=== PATIENT | male | born 1980 ===

== ENCOUNTER 2021-07-27 03:06 | Inpatient (IN) ==
[2021-07-27 03:46] LABS: PCO2 Arterial 36 mmHg (35-45); PO2 Arterial 99 mmHg (80-100)
[2021-07-27 04:27] LABS: ABS Basophils 0.1 10^3/ul (0-0.2); ABS Eosinophils 0.1 10^3/ul (0-0.6); ABS Lymphocytes 2.4 10^3/ul (1.0-4.8); ABS Monocytes 1.3 10^3/ul (0-0.8); ABS Neutrophils 13.7 10^3/ul (1.5-7.7); Eosinophil % 0.8 %; Hematocrit 36 % (42-52); Hemoglobin 11.5 g/dL (14.0-18.0); Lymphocyte % 13.7 %; Mean Corpuscular HGB Conc 32 g/dL (31-36); Mean Corpuscular Hemoglobin 25 pg (27-31); Mean Corpuscular Volume 79 fL (80-94); Mean Platelet Volume 8.4 fL (7.4-10.4); Nucleated Red Blood Cells % 0.1; Platelet Count 310 10^3/uL (150-450); Red Blood Count 4.51 10^6 /uL (4.18-5.48); Red Cell Distribution Width 22 % (10-15); White Blood Count 17.6 10^3/uL (3.5-10.8)
[2021-07-27] MEDS ORDERED: Ondansetron 4 mg VIAL 2 MG/ML 2 ml VIAL IV ONE (04:30)
[2021-07-27] MEDS ORDERED: Lidocaine 1% VIAL 10 MG/ML VIAL ONE (04:32)
[2021-07-27 04:40] LABS: Albumin 3.4 g/dL (3.2-5.2); Albumin/Globulin Ratio 1.6 (1-3); Calcium 8.1 mg/dL (8.6-10.3); Globulin 2.1 g/dL (2-4); Potassium 4.5 mmol/L (3.5-5.0); Total Bilirubin 0.2 mg/dL (0.2-1.0); Total Protein 5.5 g/dL (6.4-8.9); eGFR CKD-EPI 84.3 (>60)
[2021-07-27 08:15] LABS: Hematocrit 35 % (42-52); Hemoglobin 11.2 g/dL (14.0-18.0); Mean Corpuscular HGB Conc 32 g/dL (31-36); Mean Corpuscular Hemoglobin 25 pg (27-31); Mean Corpuscular Volume 78 fL (80-94); Mean Platelet Volume 8.1 fL (7.4-10.4); Platelet Count 302 10^3/uL (150-450); Red Blood Count 4.52 10^6 /uL (4.18-5.48); Red Cell Distribution Width 21 % (10-15); White Blood Count 16.2 10^3/uL (3.5-10.8)
[2021-07-27] MEDS ORDERED: Dextrose 50% Syringe 50 ml 25 GM/50 ML SYRINGE IV PUSH PRN (13:53)
[2021-07-27 13:56] LABS: Urine Appearance Cloudy; Urine Bilirubin Negative (Negative); Urine Blood Negative (Negative); Urine Color Yellow; Urine Glucose Negative (Negative); Urine Ketones Negative (Negative); Urine Nitrite Negative (Negative); Urine Protein Negative (Negative); Urine Specific Gravity 1.027 (1.002-1.030); Urine Urobilinogen Negative (Negative)
[2021-07-27 14:03] LABS: Urine Bacteria Absent (Absent); Urine Red Blood Cell 2+(6-10/hpf) (Absent); Urine Squamous Epithelial Cell Present (Absent); Urine White Blood Cell Trace(0-5/hpf) (Absent)
[2021-07-27] MEDS: Ondansetron 4 mg VIAL 2 MG/ML 2 ml VIAL IV PRN (14:08)
[2021-07-27] MEDS: Polyethylene Glycol 3350 17 GM PACKET PO SCH ×2 (14:08→20:42)
[2021-07-27 15:25] LABS: Hematocrit 30 % (42-52); Hemoglobin 9.4 g/dL (14.0-18.0)
[2021-07-27] MEDS: NS 0.9% 1000 ml BAG 1,000 ML IV SCH (20:47)
[2021-07-27 20:54] LABS: Hematocrit 28 % (42-52); Hemoglobin 8.7 g/dL (14.0-18.0)
[2021-07-28 06:50] LABS: Calcium 7.9 mg/dL (8.6-10.3); Potassium 4.2 mmol/L (3.5-5.0); eGFR CKD-EPI 113.5 (>60)
[2021-07-28 06:56] LABS: ABS Eosinophils 0.3 10^3/ul (0-0.6); ABS Lymphocytes 3.2 10^3/ul (1.0-4.8); ABS Monocytes 1.2 10^3/ul (0-0.8); ABS Neutrophils 4.9 10^3/ul (1.5-7.7); Eosinophil % 3.6 %; Hematocrit 26 % (42-52); Hemoglobin 8.4 g/dL (14.0-18.0); Lymphocyte % 32.6 %; Mean Corpuscular HGB Conc 32 g/dL (31-36); Mean Corpuscular Hemoglobin 25 pg (27-31); Mean Corpuscular Volume 79 fL (80-94); Mean Platelet Volume 8.9 fL (7.4-10.4); Nucleated Red Blood Cells % 0.2; Platelet Count 241 10^3/uL (150-450); Red Blood Count 3.37 10^6 /uL (4.18-5.48); Red Cell Distribution Width 22 % (10-15); White Blood Count 9.7 10^3/uL (3.5-10.8)
[2021-07-28] MEDS: Polyethylene Glycol 3350 17 GM PACKET PO SCH ×2 (08:03→20:18)
[2021-07-28] MEDS: NS 0.9% 1000 ml BAG 1,000 ML IV SCH ×2 (08:04→18:34)
[2021-07-28 12:29] LABS: Corrected Retic Count 1.4 % (0.5-1.5); Hematocrit for Retic CNT 27 % (42-52); Immature Retic Fraction 0.61
[2021-07-28 12:36] LABS: Total Bilirubin 0.2 mg/dL (0.2-1.0)
[2021-07-28] MEDS: Lactulose 30 ml UDC PO SCH ×2 (13:06→20:18)
[2021-07-28 13:23] LABS: High Sensitivity Troponin 1 Hr 5 pg/mL (<20)
[2021-07-28 13:36] LABS: ABS Basophils 0.1 10^3/ul (0-0.2); ABS Eosinophils 0.4 10^3/ul (0-0.6); ABS Lymphocytes 2.5 10^3/ul (1.0-4.8); ABS Monocytes 1.2 10^3/ul (0-0.8); ABS Neutrophils 5.2 10^3/ul (1.5-7.7); Eosinophil % 4.1 %; Hematocrit 27 % (42-52); Hemoglobin 8.6 g/dL (14.0-18.0); Lymphocyte % 26.9 %; Mean Corpuscular HGB Conc 32 g/dL (31-36); Mean Corpuscular Hemoglobin 25 pg (27-31); Mean Corpuscular Volume 78 fL (80-94); Nucleated Red Blood Cells % 0.1; Platelet Count 258 10^3/uL (150-450); Red Blood Count 3.43 10^6 /uL (4.18-5.48); Red Cell Distribution Width 21 % (10-15); White Blood Count 9.3 10^3/uL (3.5-10.8)
[2021-07-28 14:21] LABS: Albumin 3.3 g/dL (3.2-5.2); Albumin/Globulin Ratio 1.9 (1-3); Calcium 8.4 mg/dL (8.6-10.3); Globulin 1.7 g/dL (2-4); Potassium 4.5 mmol/L (3.5-5.0); Total Bilirubin 0.2 mg/dL (0.2-1.0); eGFR CKD-EPI 105.1 (>60)
[2021-07-29] MEDS: NS 0.9% 1000 ml BAG 1,000 ML IV SCH (04:45)
[2021-07-29 07:12] LABS: Hematocrit 27 % (42-52); Hemoglobin 8.5 g/dL (14.0-18.0); Mean Corpuscular HGB Conc 32 g/dL (31-36); Mean Corpuscular Hemoglobin 25 pg (27-31); Mean Corpuscular Volume 78 fL (80-94); Mean Platelet Volume 8.2 fL (7.4-10.4); Platelet Count 259 10^3/uL (150-450); Red Cell Distribution Width 21 % (10-15); White Blood Count 9.4 10^3/uL (3.5-10.8)
[2021-07-29 07:53] LABS: ALT 17 U/L (7-52); AST 13 U/L (13-39); Albumin 3.4 g/dL (3.2-5.2); Albumin/Globulin Ratio 1.9 (1-3); Alkaline Phosphatase 65 U/L (35-149); Globulin 1.8 g/dL (2-4); Total Protein 5.2 g/dL (6.4-8.9)
[2021-07-29] MEDS ORDERED: NS 0.9% 1000 ml BAG 1,000 ML IV ONE (08:54)
[2021-07-29] MEDS: Polyethylene Glycol 3350 17 GM PACKET PO SCH ×2 (10:11→21:03)
[2021-07-29] MEDS ORDERED: Lactated Ringers 1000 ml BAG 1,000 ML IV ONE (11:09)
[2021-07-29 11:47] LABS: Urine Benzodiazepine Screen None Detected (None Detect); Urine Cannabinoids Screen None Detected (None Detect); Urine Opiates Screen None Detected (None Detect)
[2021-07-29] MEDS: Lactated Ringers 1000 ml BAG 1,000 ML IV SCH (14:03)
[2021-07-30] MEDS: Lactated Ringers 1000 ml BAG 1,000 ML IV SCH (03:25)
[2021-07-30] MEDS: Polyethylene Glycol 3350 17 GM PACKET PO SCH ×2 (08:15→21:06)
[2021-07-30 08:16] LABS: ABS Basophils 0.1 10^3/ul (0-0.2); ABS Eosinophils 0.2 10^3/ul (0-0.6); ABS Lymphocytes 2.4 10^3/ul (1.0-4.8); ABS Neutrophils 6.3 10^3/ul (1.5-7.7); Eosinophil % 2.4 %; Hematocrit 28 % (42-52); Hemoglobin 9.1 g/dL (14.0-18.0); Lymphocyte % 23.8 %; Mean Corpuscular HGB Conc 32 g/dL (31-36); Mean Corpuscular Hemoglobin 25 pg (27-31); Mean Corpuscular Volume 79 fL (80-94); Mean Platelet Volume 8.5 fL (7.4-10.4); Nucleated Red Blood Cells % 0.1; Platelet Count 273 10^3/uL (150-450); Red Blood Count 3.61 10^6 /uL (4.18-5.48); Red Cell Distribution Width 21 % (10-15); White Blood Count 10.1 10^3/uL (3.5-10.8)
[2021-07-30 09:18] LABS: Albumin 3.7 g/dL (3.2-5.2); Albumin/Globulin Ratio 1.9 (1-3); Calcium 9.2 mg/dL (8.6-10.3); Potassium 4.2 mmol/L (3.5-5.0); Total Bilirubin 0.3 mg/dL (0.2-1.0); Total Protein 5.7 g/dL (6.4-8.9); eGFR CKD-EPI 119.5 (>60)
[2021-07-30 13:24] LABS: PSA Screening Total 0.479 ng/mL (0-4.000)
[2021-07-30] MEDS ORDERED: Senna TAB 8.6 mg TAB PO PRN (14:42)
[2021-07-31 05:23] LABS: ABS Eosinophils 0.3 10^3/ul (0-0.6); ABS Lymphocytes 1.7 10^3/ul (1.0-4.8); ABS Monocytes 1.1 10^3/ul (0-0.8); ABS Neutrophils 4.8 10^3/ul (1.5-7.7); Eosinophil % 3.6 %; Hematocrit 29 % (42-52); Hemoglobin 9.5 g/dL (14.0-18.0); Lymphocyte % 21.6 %; Mean Corpuscular HGB Conc 32 g/dL (31-36); Mean Corpuscular Hemoglobin 25 pg (27-31); Mean Corpuscular Volume 79 fL (80-94); Nucleated Red Blood Cells % 0.3; Platelet Count 300 10^3/uL (150-450); Red Blood Count 3.73 10^6 /uL (4.18-5.48); Red Cell Distribution Width 22 % (10-15); White Blood Count 7.8 10^3/uL (3.5-10.8)
[2021-07-31 06:17] LABS: Albumin 3.6 g/dL (3.2-5.2); Albumin/Globulin Ratio 1.6 (1-3); Calcium 9.2 mg/dL (8.6-10.3); Globulin 2.3 g/dL (2-4); Potassium 4.5 mmol/L (3.5-5.0); Total Bilirubin 0.4 mg/dL (0.2-1.0); Total Protein 5.9 g/dL (6.4-8.9); eGFR CKD-EPI 116.1 (>60)
[2021-07-31] MEDS: Polyethylene Glycol 3350 17 GM PACKET PO SCH ×2 (07:36→23:03)
[2021-07-31 09:37] LABS: C Reactive Protein 3.15 mg/L (<8.01)
[2021-07-31] MEDS: Ondansetron 4 mg VIAL 2 MG/ML 2 ml VIAL IV PRN (09:51)
[2021-07-31] MEDS ORDERED: Iohexol 300 (CONTRAST) 10 ML SDV IV ONE (10:13)
[2021-07-31] MEDS ORDERED: Iodixanol (CONTRAST) 320 MG/ML 100 ML SDV IV ONE (11:24)
[2021-07-31 12:28] LABS: Urine Appearance Clear; Urine Bilirubin Negative (Negative); Urine Blood 3+ (Negative); Urine Color Colorless; Urine Glucose Negative (Negative); Urine Ketones Negative (Negative); Urine Nitrite Negative (Negative); Urine Protein Negative (Negative); Urine Urobilinogen Negative (Negative)
[2021-07-31 12:38] LABS: Urine Bacteria Absent (Absent); Urine Red Blood Cell Trace(0-2/hpf) (Absent); Urine Squamous Epithelial Cell Present (Absent); Urine White Blood Cell Absent (Absent)
[2021-07-31] MEDS ORDERED: Lactulose 30 ml UDC PO ONE (14:39)
[2021-07-31] MEDS ORDERED: OLANzapine 5 mg TAB*ODT PO ONE (15:49)
[2021-07-31] MEDS: OLANzapine 5 mg TAB*ODT PO SCH (22:57)
[2021-08-01 05:59] LABS: Hematocrit 31 % (42-52); Hemoglobin 9.6 g/dL (14.0-18.0); Mean Corpuscular HGB Conc 31 g/dL (31-36); Mean Corpuscular Hemoglobin 25 pg (27-31); Mean Corpuscular Volume 80 fL (80-94); Mean Platelet Volume 8.9 fL (7.4-10.4); Platelet Count 346 10^3/uL (150-450); Red Blood Count 3.86 10^6 /uL (4.18-5.48); Red Cell Distribution Width 21 % (10-15); White Blood Count 7.2 10^3/uL (3.5-10.8)
[2021-08-01 06:13] LABS: Albumin 3.6 g/dL (3.2-5.2); Albumin/Globulin Ratio 1.6 (1-3); Calcium 9.1 mg/dL (8.6-10.3); Globulin 2.3 g/dL (2-4); Potassium 4.6 mmol/L (3.5-5.0); Total Bilirubin 0.2 mg/dL (0.2-1.0); Total Protein 5.9 g/dL (6.4-8.9); eGFR CKD-EPI 113.9 (>60)
[2021-08-01] MEDS ORDERED: Magnesium Hydroxide LIQ 30 ML UDC PO PRN (09:59)
[2021-08-01] MEDS: Polyethylene Glycol 3350 17 GM PACKET PO SCH ×2 (10:04→20:10)
[2021-08-01] MEDS: OLANzapine 5 mg TAB*ODT PO SCH (20:09)
[2021-08-01 21:52] VITALS: BP 120/70
== END 2021-08-01 22:45 | DRG 951 ==
LOC: ED 03:06 → EDHOLD 03:06 → MEDTELE 15:45 → SUATTDRO 07-29 18:29
PROVIDERS: ADMIT Hospitalist; ATTEND Internal Medicine